=== PATIENT | male | born 1970 | race Two or more races ===

== ENCOUNTER 2016-05-20 15:40 | Emergency (ER) | payer SELFPAY ==
[~2016-05-20] VITALS: Ht 175.3 cm; Wt 90.7 kg
[2016-05-20 17:10] VITALS: BP 138/94
== END 2016-05-20 17:11 | disposition home or self-care (01) ==
LOC: ER 15:43
DX: F10.129 Alcohol abuse with intoxication, unspecified (principal); R41.82 Altered mental status, unspecified
CPT/HCPCS: 70450-TC; A4606; Z7610

== ENCOUNTER 2016-07-16 15:23 | Emergency (ER) | payer SELFPAY ==
[~2016-07-16] VITALS: Ht 172.7 cm; Wt 90.7 kg
--- NOTE | 2016-07-16 17:22 | NUR ---
FUNMILAYO CARTAGENA FROM [facility] FOR ETOH, VERBALLY RESPONSIVE, NO HEAD TRAUMA, MD AT BEDSIDE.
[2016-07-16 17:23] VITALS: BP 153/80
--- NOTE | 2016-07-16 17:23 | NUR ---
Patient discharged to home in stable condition. Written and verbal after care instructions given. Patient verbalizes understanding of instruction.
== END 2016-07-16 17:24 | disposition home or self-care (01) ==
LOC: ER 15:24
DX: F10.129 Alcohol abuse with intoxication, unspecified (principal)
CPT/HCPCS: 99283; A4606; Z7610